=== PATIENT | female | born 1980 | race Caucasian/White ===

== ENCOUNTER 2019-07-07 08:55 | Emergency (ER) | payer MEDICAID ==
[~2019-07-07] VITALS: Ht 157.5 cm; Wt 111.1 kg
--- NOTE | 2019-07-07 08:56 | NUR ---
Arrived via [facility] ambulance with compliant of RLQ and right flank pain. Patient is moaning and writhing, however refused prehospital medication. Placed in room 2. Placed on monitor car operator, blood pressure machine and pulse oximeter. To gown for exam. Side rails up. Report given to Dhruv MALIK.
--- NOTE | 2019-07-07 08:57 | NUR ---
Patient brought in by EMS, with 20g IV to left hand. Patient is awake, alert, and oriented x4. Patient is complaining of burning LRQ abdominal pain 10/10 with nausea since this morning. Patient was able to ambulate to the restroom to provide urine sample.
--- NOTE | 2019-07-07 08:58 | NUR ---
ER Dr. Fine at bedside examining patient.
[2019-07-07] MEDS ORDERED: NACL 0.9% 1,000 ML IV ONE (09:03)
[2019-07-07] MEDS ORDERED: MORPHINE 4 MG/ML INJ. SYRINGE IVP ONE (09:15)
[2019-07-07] MEDS ORDERED: ONDANSETRON HCL 4 MG/2 ML VIAL IVP ONE (09:15)
[2019-07-07] MEDS ORDERED: KETOROLAC TROMETHAMINE 30 MG VIAL IVP ONE ×2 (09:15→11:15)
[2019-07-07 09:36] LABS: CALCIUM 9.2 mg/dL (8.4-11.0); CREATININE 0.95 mg/dL (0.55-1.30); POTASSIUM 3.2 mmol/L (3.5-5.1)
[2019-07-07 09:39] LABS: BASOPHILS # (AUTO) 0.1 K/uL (0.0-0.2); BASOPHILS % (AUTO) 0.8 % (0.0-2.0); EOSINOPHILS # (AUTO) 0.2 K/uL (0.0-0.4); EOSINOPHILS % (AUTO) 2.4 % (0.0-4.0); HEMATOCRIT 42.6 % (36-48); HEMOGLOBIN 14.4 g/dL (12.0-16.0); LYMPHOCYTES # (AUTO) 1.2 K/uL (1.0-5.5); LYMPHOCYTES % (AUTO) 13.2 % (20.5-51.5); MEAN CORPUSCULAR HEMOGLOBIN 29 pg (27-31); MEAN CORPUSCULAR HGB CONC 34 % (32-36); MEAN CORPUSCULAR VOLUME 85 fL (79.0-98.0); MONOCYTES # (AUTO) 0.5 K/uL (0.0-1.0); MONOCYTES % (AUTO) 5.2 % (1.7-9.3); NEUTROPHILS # (AUTO) 7.4 K/uL (1.8-7.7); NEUTROPHILS % (AUTO) 78.4 % (40.0-70.0); PLATELET COUNT (AUTO) 311 K/uL (130-430); RED BLOOD CELL COUNT(AUTO) 5.04 MIL/uL (4.2-6.2); RED CELL DISTRIBUTION WIDTH 14.1 % (9.0-15.0); WHITE BLOOD COUNT (AUTO) 9.4 K/uL (4.8-10.8)
--- NOTE | 2019-07-07 09:39 | NUR ---
Patient transported to radiology via gurney, accompanied by computer engineering technician.
[2019-07-07 09:42] LABS: BILIRUBIN,URINE NEGATIVE (NEGATIVE); BLOOD, URINE 3+ (NEGATIVE); CLARITY/URINE CLOUDY (CLEAR); COLOR,URINE RED (YELLOW); GLUCOSE,URINE NEGATIVE (NEGATIVE); KETONES,URINE NEGATIVE (NEGATIVE); LEUKOCYTE ESTERASE ,URINE NEGATIVE (NEGATIVE); NITRITE, URINE NEGATIVE (NEGATIVE); PH,URINE 8.5 (5.0-8.0); PROTEIN URINE 1+ (NEGATIVE); UROBILINOGEN,URINE 0.2 (0.2-1.0)
[2019-07-07 09:42] LABS: ALBUMIN 3.6 g/dL (3.4-4.8); TOTAL BILIRUBIN 0.4 mg/dL (0.0-1.0)
--- NOTE | 2019-07-07 09:49 | NUR ---
Returned from radiology, back to [facility].
[2019-07-07 09:51] LABS: BACTERIA,URINE FEW /HPF (None Seen); RBC,URINE >100 /HPF (0-3)
--- NOTE | 2019-07-07 10:03 | NUR ---
Dr. Fine made aware of patient blood pressure.
--- NOTE | 2019-07-07 11:27 | NUR ---
Patient's father called at [phone], states he will be on the way to pick her up.
[2019-07-07] MEDS ORDERED: KETOROLAC TROMETHAMINE 30 MG VIAL IM ONE (11:30)
[2019-07-07] MEDS ORDERED: HYDROcodone/ACETAMIN 5-325 MG TAB (NORCO/ VICODIN) PO ONE (11:30)
[2019-07-07 11:47] VITALS: BP_SYST 148
--- NOTE | 2019-07-07 11:47 | NUR ---
Patient given written and verbal discharge instructions and verbalizes understanding. ER MD discussed with patient the results and treatment provided. Patient in stable condition. ID arm band removed. IV catheter removed intact and dressing applied, no active bleeding. Rx of norco 5-325, keflex 500mg, flowmax 0.4mg, naprosyn 500mg,zofran ODT 4mg given. Patient educated on pain management and to follow up with PMD. Pain Scale 0/10. Opportunity for questions provided and answered. Medication side effect fact sheet provided.
== END 2019-07-07 11:47 | disposition home or self-care (01) ==
LOC: SED 08:55
DX: N20.1 Calculus of ureter (principal)
CPT/HCPCS: 36415; 74176; 80053; 81000; 81025; 83690; 85025; 96372; 96374; 96375; 99284; J1885; J2270; J2405

== ENCOUNTER 2020-09-05 07:17 | Emergency (ER) | payer MEDICAID ==
[~2020-09-05] VITALS: Ht 162.6 cm; Wt 90.7 kg
[2020-09-05 07:17] VITALS: BP_SYST 172
--- NOTE | 2020-09-05 07:17 | NUR ---
BROUGHT BACK TO BED #5 AND TRIAGED. REPORT GIVEN TO SHAUN
--- NOTE | 2020-09-05 07:25 | NUR ---
Patient AAOx4 ambulatory to bed 5, c/o lower back pain aching 07/24. Patient states she could not sleep due to the pain. Patient denies any SOB at this time. No signs or symptoms of acute distress noted. Patient has PMH of HTN and NE.
--- NOTE | 2020-09-05 07:32 | NUR ---
ER Dr. Brito at bedside examining patient.
[2020-09-05] MEDS ORDERED: MORPHINE 4 MG/ML INJ. SYRINGE IM ONE (07:45)
--- NOTE | 2020-09-05 09:37 | NUR ---
Patient awake and resting in bed, assisted to ambulate to restroom. Patient denies any pain or SOB at this time. No signs or symptoms of acute distress noted.
[2020-09-05 09:54] VITALS: BP_SYST 165
--- NOTE | 2020-09-05 09:54 | NUR ---
Patient given written and verbal discharge instructions and verbalizes understanding. ER MD discussed with patient the results and treatment provided. Patient in stable condition. ID arm band removed. Rx of [place] given. Patient educated on pain management and to follow up with PMD. Pain Scale 0/10. Opportunity for questions provided and answered. Medication side effect fact sheet provided.
== END 2020-09-05 09:54 | disposition home or self-care (01) ==
LOC: SED 07:17
DX: M54.5 Low back pain (principal)
CPT/HCPCS: 81002; 81025; 96372; 99283

== ENCOUNTER 2020-09-12 19:33 | Emergency (ER) | payer MEDICAID ==
[~2020-09-12] VITALS: Ht 162.6 cm; Wt 90.7 kg
[2020-09-12 19:40] VITALS: BP_SYST 177
--- NOTE | 2020-09-12 19:42 | NUR ---
Patient to ER bed 2 to gown for evaluation. Side rails up. Report given to Junie MALIK.
--- NOTE | 2020-09-12 19:53 | NUR ---
Patient complains of possibly swallowing something that causes sharp pain to epigastric region intermittently. Per pt, she was drinking water and felt like she swallowed something that scratched her throat. Denies SOB. Pt speaking in full sentences. No other injuries/complaints per pt or noted.
--- NOTE | 2020-09-12 20:00 | NUR ---
ER Dr. Gómez at bedside examining patient.
[2020-09-12] MEDS ORDERED: GLUCAGON,HUMAN RECOMBINANT 1 MG VIAL IVP ONE (20:15)
[2020-09-12] MEDS ORDERED: ONDANSETRON HCL 4 MG/2 ML VIAL IVP ONE (20:15)
--- NOTE | 2020-09-12 21:56 | NUR ---
Patient resting comfortably in bed. No acute distress, will continue to monitor. Pt reports that pain is not as bad as when she first came in. ER MD made aware.
--- NOTE | 2020-09-12 22:26 | NUR ---
Repeat EKG completed and given to Dr. Gómez for interpretation.
[2020-09-12] MEDS ORDERED: MAGNESIUM SULFATE 50 ML IV ONE (22:30)
[2020-09-12 23:05] VITALS: BP_SYST 149
--- NOTE | 2020-09-12 23:05 | NUR ---
Patient given written and verbal discharge instructions and verbalizes understanding. ER MD discussed with patient the results and treatment provided. Patient in stable condition. ID arm band removed. IV catheter removed intact and dressing applied, no active bleeding. No Rx given. Patient educated on pain management and to follow up with PMD. Pain Scale 0. Opportunity for questions provided and answered. Medication side effect fact sheet provided.
== END 2020-09-12 23:05 | disposition home or self-care (01) ==
LOC: SED 19:33
DX: T18.198A Other foreign object in esophagus causing other injury, initial encounter (principal); X58.XXXA Exposure to other specified factors, initial encounter; Y93.89 Activity, other specified; Y92.89 Other specified places as the place of occurrence of the external cause; Y99.8 Other external cause status
CPT/HCPCS: 71045; 74018; 81025; 93005; 96365; 96375; 99284; J1610; J2405; J3475

== ENCOUNTER 2020-10-23 14:46 | Emergency (ER) | payer MEDICAID ==
[~2020-10-23] VITALS: Ht 162.6 cm; Wt 90.7 kg
--- NOTE | 2020-10-23 15:00 | NUR ---
Pt traiged and placed in tent.
[2020-10-23 15:10] VITALS: BP_SYST 147
--- NOTE | 2020-10-23 15:15 | NUR ---
Pt walked in to ER with c/o redness and swelling to left eye since this morning. V/S stable, pt is febrile. No distress.
--- NOTE | 2020-10-23 15:50 | NUR ---
ER Dr. Barakat at bedside examining patient.
[2020-10-23 16:33] VITALS: BP_SYST 147
--- NOTE | 2020-10-23 16:35 | NUR ---
Patient given written and verbal discharge instructions and verbalizes understanding. ER MD discussed with patient the results and treatment provided. Patient in stable condition. ID arm band removed. Rx of Bactrim and Sulfacetamide Eye Drops given. Patient educated on pain management and to follow up with PMD. Pain Scale 0. Opportunity for questions provided and answered. Medication side effect fact sheet provided.
== END 2020-10-23 16:33 | disposition home or self-care (01) ==
LOC: SED 14:46
DX: H00.015 Hordeolum externum left lower eyelid (principal); I10 Essential (primary) hypertension; F17.200 Nicotine dependence, unspecified, uncomplicated
CPT/HCPCS: 99283

== ENCOUNTER 2021-01-12 10:10 | Observation (INO) | payer MEDICAID ==
[~2021-01-12] VITALS: Ht 162.6 cm; Wt 110.7 kg
[2021-01-12 10:10] VITALS: BP_SYST 164
[2021-01-12] MEDS ORDERED: LISINOPRIL 10 MG TABLET (PRINIVIL) PO ONE (10:45)
[2021-01-12] MEDS ORDERED: FUROSEMIDE 20 MG/2 ML VIAL IVP ONE (10:45)
[2021-01-12] MEDS ORDERED: DILTIAZEM HCL 180 MG CAP.SR.24H PO ONE (10:45)
[2021-01-12] MEDS ORDERED: ASPIRIN 81 MG TAB.CHEW PO ONE (10:45)
[2021-01-12 10:56] LABS: BASOPHILS # (AUTO) 0.1 K/uL (0.0-0.2); BASOPHILS % (AUTO) 1.2 % (0.0-2.0); EOSINOPHILS # (AUTO) 0.6 K/uL (0.0-0.4); EOSINOPHILS % (AUTO) 5.8 % (0.0-4.0); HEMOGLOBIN 12.7 g/dL (12.0-16.0); LYMPHOCYTES # (AUTO) 1.6 K/uL (1.0-5.5); LYMPHOCYTES % (AUTO) 16.2 % (20.5-51.5); MEAN CORPUSCULAR HEMOGLOBIN 27 pg (27-31); MEAN CORPUSCULAR HGB CONC 33 % (32-36); MEAN CORPUSCULAR VOLUME 83 fL (79.0-98.0); MONOCYTES # (AUTO) 0.4 K/uL (0.0-1.0); MONOCYTES % (AUTO) 4.1 % (1.7-9.3); NEUTROPHILS # (AUTO) 7.1 K/uL (1.8-7.7); NEUTROPHILS % (AUTO) 72.7 % (40.0-70.0); PLATELET COUNT (AUTO) 285 K/uL (130-430); RED BLOOD CELL COUNT(AUTO) 4.67 MIL/uL (4.2-6.2); RED CELL DISTRIBUTION WIDTH 15.4 % (9.0-15.0); WHITE BLOOD COUNT (AUTO) 9.7 K/uL (4.8-10.8)
[2021-01-12 11:11] LABS: PROTHROMBIN TIME 10.1 SECS (9.5-12.5)
[2021-01-12 11:15] LABS: CALCIUM 8.3 mg/dL (8.4-11.0); CREATININE 0.79 mg/dL (0.55-1.30); POTASSIUM 3.9 mmol/L (3.5-5.1)
[2021-01-12 11:28] LABS: ALBUMIN 3.1 g/dL (3.4-4.8); TOTAL BILIRUBIN 0.3 mg/dL (0.0-1.0)
[2021-01-12] MEDS ORDERED: cefTRIAXone 1 GM IVPB PREMIX 50 ML IV ONE (12:15)
[2021-01-12] MEDS ORDERED: LISI10TA29 PO (13:45)
[2021-01-12] MEDS ORDERED: COR6.25 PO (13:45)
[2021-01-12 15:10] VITALS: BP_SYST 138
[2021-01-12 16:00] VITALS: BP_SYST 138
[2021-01-12] MEDS ORDERED: LORazepam 2 MG/ML VIAL IVP PRN (19:30)
[2021-01-12] MEDS ORDERED: NALOXONE HCL 0.4 MG/ML AMP (NARCAN) IVP PRN ×2 (19:30)
[2021-01-12] MEDS ORDERED: ONDANSETRON HCL 4 MG/2 ML VIAL IVP PRN (19:30)
[2021-01-12] MEDS ORDERED: HYDROcodone/ACETAMIN 10-325 MG TAB PO PRN (19:30)
[2021-01-12] MEDS ORDERED: ACETAMINOPHEN 325 MG TABLET PO PRN ×2 (19:30→19:45)
[2021-01-12] MEDS ORDERED: HYDROcodone/ACETAMIN 5-325 MG TAB (NORCO/ VICODIN) PO PRN (19:30)
[2021-01-12 20:00] VITALS: BP_SYST 137
[2021-01-12] MEDS: CARVEDILOL 6.25 MG TABLET (COREG) PO SCH (20:37)
[2021-01-12] MEDS: NORMAL SALINE 5 ML DISP.SYRIN IVF SCH (21:32)
[2021-01-13 00:50] VITALS: BP_SYST 122
[2021-01-13] MEDS: NORMAL SALINE 5 ML DISP.SYRIN IVF SCH ×2 (06:09→14:04)
[2021-01-13 06:44] LABS: BASOPHILS # (AUTO) 0.1 K/uL (0.0-0.2); BASOPHILS % (AUTO) 0.8 % (0.0-2.0); EOSINOPHILS # (AUTO) 0.7 K/uL (0.0-0.4); EOSINOPHILS % (AUTO) 7.1 % (0.0-4.0); HEMATOCRIT 38.9 % (36-48); HEMOGLOBIN 12.8 g/dL (12.0-16.0); LYMPHOCYTES # (AUTO) 1.8 K/uL (1.0-5.5); LYMPHOCYTES % (AUTO) 18.3 % (20.5-51.5); MEAN CORPUSCULAR HEMOGLOBIN 28 pg (27-31); MEAN CORPUSCULAR HGB CONC 33 % (32-36); MEAN CORPUSCULAR VOLUME 84 fL (79.0-98.0); MONOCYTES # (AUTO) 0.4 K/uL (0.0-1.0); NEUTROPHILS # (AUTO) 6.9 K/uL (1.8-7.7); NEUTROPHILS % (AUTO) 69.8 % (40.0-70.0); PLATELET COUNT (AUTO) 302 K/uL (130-430); RED BLOOD CELL COUNT(AUTO) 4.64 MIL/uL (4.2-6.2); RED CELL DISTRIBUTION WIDTH 15.5 % (9.0-15.0); WHITE BLOOD COUNT (AUTO) 9.9 K/uL (4.8-10.8)
[2021-01-13 07:21] LABS: ANION GAP 10 (5-15); CALCIUM 8.7 mg/dL (8.4-11.0); CHLORIDE 106 mmol/L (98-107); CREATININE 0.74 mg/dL (0.55-1.30); GLUCOSE 93 mg/dL (70-99); PHOSPHORUS 3.8 mg/dL (2.7-4.5); POTASSIUM 4.1 mmol/L (3.5-5.1); SODIUM SERUM 141 mmol/L (136-145); UREA NITROGEN, BLOOD 13 mg/dL (8-21)
[2021-01-13 07:43] LABS: GFR AFRICAN AMERICAN 112 mL/min (>90)
[2021-01-13 08:00] VITALS: BP_SYST 148
[2021-01-13] MEDS: CARVEDILOL 6.25 MG TABLET (COREG) PO SCH (08:56)
[2021-01-13] MEDS ORDERED: LISINOPRIL 10 MG TABLET (PRINIVIL) PO SCH (09:00)
[2021-01-13 11:29] VITALS: BP_SYST 117
[2021-01-13 15:25] VITALS: BP_SYST 120
[2021-01-13] MEDS ORDERED: LISI10TA29 PO ×2 (17:40→17:42)
[2021-01-13] MEDS ORDERED: COR6.25 PO (17:40)
[2021-01-13 17:51] VITALS: BP_SYST 138
== END 2021-01-13 18:10 | disposition home or self-care (01) ==
LOC: SED 10:10 → STU 13:45 → INTOOBSV 13:45 → STU 13:51
PROVIDERS: ADMIT Preventive Medicine Preventive Medicine/Occupational Environmental Medicine; ATTEND Preventive Medicine Preventive Medicine/Occupational Environmental Medicine
DX: I16.0 Hypertensive urgency (principal); Z20.822 Contact with and (suspected) exposure to COVID-19; J96.00 Acute respiratory failure, unspecified whether with hypoxia or hypercapnia; I11.0 Hypertensive heart disease with heart failure; I50.9 Heart failure, unspecified; I25.10 Atherosclerotic heart disease of native coronary artery without angina pectoris; J18.9 Pneumonia, unspecified organism; R00.0 Tachycardia, unspecified; R73.9 Hyperglycemia, unspecified; E83.51 Hypocalcemia; E88.09 Other disorders of plasma-protein metabolism, not elsewhere classified; I21.A9 Other myocardial infarction type; K80.20 Calculus of gallbladder without cholecystitis without obstruction; I25.2 Old myocardial infarction; E87.70 Fluid overload, unspecified; E66.9 Obesity, unspecified; E83.52 Hypercalcemia; Z79.899 Other long term (current) drug therapy
CPT/HCPCS: 36415 ×2; 71045; 80048; 80053; 83605; 83735; 83880; 84100; 84484 ×2; 85025 ×2; 85610; 85730; 87040; 87426; 93005; 93306; 96365; 96375; 99285; G0378; J0696; J1940

== ENCOUNTER 2021-07-05 07:52 | Emergency (ER) | payer MEDICAID, SELFPAY ==
[~2021-07-05] VITALS: Ht 162.6 cm; Wt 91.6 kg
[~2021-07-05 07:52] MED LIST: COR6.25 PO; LISI10TA29 PO
[2021-07-05 08:11] VITALS: BP_SYST 148
--- NOTE | 2021-07-05 08:14 | NUR ---
Patient to ER bed 6 to gown for evaluation. Side rails up. Report given to Maida MALIK.
--- NOTE | 2021-07-05 08:15 | NUR ---
Pt. brought self in with c/o N/V/D since about 1pm yesterday, has mild abd. pain 11/24, stated she was scheduled to work today and is unable, requesting note for work
--- NOTE | 2021-07-05 08:15 | NUR ---
ER at bedside examining patient.
[2021-07-05] MEDS ORDERED: ONDANSETRON 4 MG ODT TAB PO ONE (08:30)
[2021-07-05] MEDS ORDERED: DIPHENOXYLATE HCL/ATROP SULF 2.5 MG TAB PO ONE (08:30)
[2021-07-05] MEDS ORDERED: KETOROLAC TROMETHAMINE 60 MG/2 ML VIAL IM ONE (08:30)
[2021-07-05] MEDS ORDERED: DIPHENOXYLATE HCL/ATROP SULF 2.5 MG TAB ONE (08:35)
[2021-07-05] MEDS ORDERED: ONDA-8 TL (09:03)
[2021-07-05] MEDS ORDERED: LOM2.5 PO (09:03)
[2021-07-05 09:17] VITALS: BP_SYST 139
--- NOTE | 2021-07-05 09:17 | NUR ---
Patient given written and verbal discharge instructions and verbalizes understanding. ER Dr. Benedict discussed with patient the results and treatment provided. Patient in stable condition. ID arm band removed. Rx of Zofran and Lomotil given. Patient educated on pain management and to follow up with PMD. Pain Scale 0. Opportunity for questions provided and answered. Medication side effect fact sheet provided.
== END 2021-07-05 09:17 | disposition home or self-care (01) ==
LOC: SED 07:52
DX: K52.9 Noninfective gastroenteritis and colitis, unspecified (principal); I10 Essential (primary) hypertension; I11.0 Hypertensive heart disease with heart failure; I50.9 Heart failure, unspecified; I25.10 Atherosclerotic heart disease of native coronary artery without angina pectoris; Z79.899 Other long term (current) drug therapy; Z20.822 Contact with and (suspected) exposure to COVID-19
CPT/HCPCS: 81002; 81025; 96372; 99283; C9803; J1885; Q0162; U0003

== ENCOUNTER 2022-03-09 11:05 | Inpatient (IN) | payer MEDICAID ==
[~2022-03-09] VITALS: Ht 162.6 cm; Wt 97.5 kg
[~2022-03-09 11:05] MED LIST changes: +LOM2.5 PO; +ONDA-8 TL
--- NOTE | 2022-03-09 11:09 | NUR ---
Patient to ER bed 3 for evaluation. Side rails up. Report given to Kris MALIK.
[2022-03-09 11:14] VITALS: BP_SYST 160
[2022-03-09] MEDS ORDERED: ASPIRIN 81 MG TAB.CHEW PO ONE (11:30)
--- NOTE | 2022-03-09 11:43 | NUR ---
Pt present to ED with complaint of dyspnea and BLE pain on ambulation. Pt reports that she is an everyday smoker. AOx4 GCS [address] ekg done. pt in gown. Will continue to monitor pt.
--- NOTE | 2022-03-09 11:48 | NUR ---
Pt seen by ED physician at bedside
[2022-03-09 11:53] LABS: ANION GAP 10 (5-15); BASOPHILS # (AUTO) 0.1 K/uL (0.0-0.2); CALCIUM 8.1 mg/dL (8.4-11.0); CHLORIDE 103 mmol/L (98-107); CREATININE 0.77 mg/dL (0.55-1.30); EOSINOPHILS # (AUTO) 0.3 K/uL (0.0-0.4); EOSINOPHILS % (AUTO) 4.1 % (0.0-4.0); GLUCOSE 97 mg/dL (70-99); HEMATOCRIT 38.2 % (36-48); HEMOGLOBIN 12.5 g/dL (12.0-16.0); LYMPHOCYTES # (AUTO) 1.3 K/uL (1.0-5.5); LYMPHOCYTES % (AUTO) 17.6 % (20.5-51.5); MEAN CORPUSCULAR HEMOGLOBIN 26 pg (27-31); MEAN CORPUSCULAR HGB CONC 33 % (32-36); MEAN CORPUSCULAR VOLUME 79 fL (79.0-98.0); MONOCYTES # (AUTO) 0.3 K/uL (0.0-1.0); MONOCYTES % (AUTO) 3.9 % (1.7-9.3); NEUTROPHILS # (AUTO) 5.4 K/uL (1.8-7.7); NEUTROPHILS % (AUTO) 73.4 % (40.0-70.0); PLATELET COUNT (AUTO) 247 K/uL (130-430); RED BLOOD CELL COUNT(AUTO) 4.81 MIL/uL (4.2-6.2); RED CELL DISTRIBUTION WIDTH 16.5 % (9.0-15.0); SODIUM SERUM 138 mmol/L (136-145); UREA NITROGEN, BLOOD 16 mg/dL (8-21); WHITE BLOOD COUNT (AUTO) 7.3 K/uL (4.8-10.8)
[2022-03-09 11:55] LABS: GFR AFRICAN AMERICAN 107 mL/min (>90)
[2022-03-09 12:08] LABS: ALANINE AMINOTRANSFERASE 18 U/L (12-78); ASPARTATE AMINOTRANSFERASE 23 U/L (10-37); TOTAL BILIRUBIN 0.6 mg/dL (0.0-1.0)
[2022-03-09] MEDS ORDERED: ALBUTEROL SULFATE 0.083% 2.5 MG/3 ML VIAL.NEB INH ONE (12:45)
[2022-03-09] MEDS ORDERED: FUROSEMIDE 40 MG/4 ML VIAL IVP ONE (13:00)
--- NOTE | 2022-03-09 13:11 | NUR ---
pt off the unit for CT
[2022-03-09 13:15] LABS: INR 1.1 (0.8-1.2); PROTHROMBIN TIME 10.7 SECS (9.5-12.5)
[2022-03-09 13:43] LABS: BILIRUBIN,URINE NEGATIVE (NEGATIVE); BLOOD, URINE 3+ (NEGATIVE); GLUCOSE,URINE NEGATIVE (NEGATIVE); KETONES,URINE NEGATIVE (NEGATIVE); LEUKOCYTE ESTERASE ,URINE NEGATIVE (NEGATIVE); NITRITE, URINE NEGATIVE (NEGATIVE); PROTEIN URINE 1+ (NEGATIVE); UROBILINOGEN,URINE 0.2 (0.2-1.0)
[2022-03-09 13:51] LABS: CLARITY/URINE CLEAR (CLEAR); COLOR,URINE BROWN (YELLOW)
[2022-03-09] MEDS ORDERED: NITROGLYCERIN 1 INCH (GM) OINT. TP ONE (14:15)
[2022-03-09] MEDS ORDERED: hydrALAZINE HCL 20 MG/ML VIAL IVP ONE (14:15)
--- NOTE | 2022-03-09 15:04 | NUR ---
Admit bed requested Patient will be admitted to care of Dr. Hernandez Admitted to unit. Tele Diagnosis CHF Inpatient (Yes or No) yes Observation (Yes or No) no Orientation concerns or request close to nursing station (Yes or No) no Covid Status negative On vent or bipap no Isolation requirements no Needs a sitter no From Home (Yes or if No enter name of facility) yes Requires Dialysis (Yes or No) no Med Rec Completed (Yes of No) no
--- NOTE | 2022-03-09 15:08 | NUR ---
Pt not sure what meds she takes at home, unable to med rec. Will continue to monitor pt
[2022-03-09 15:18] LABS: RBC,URINE 80-100 /HPF (0-3); WBC,URINE 0-3 /HPF (0-3)
[2022-03-09 15:19] LABS: BACTERIA,URINE None Seen /HPF (None Seen); MUCUS,URINE 1+ /LPF (None Seen)
[2022-03-09 16:10] VITALS: BP_SYST 147
--- NOTE | 2022-03-09 16:10 | NUR ---
ADMISSION NOTED PATIENT ADMITTED TO TELE UNIT VIA GURNEY AND WAS ABLE TO AMBULATE FROM GURNEY TO BED. PATIENT IS ALERT AND ORIENTED X 4. NO COMPLAINTS OF CHEST PAIN AT THIS TIME. PATIENT CLAIMS SOB WHEN AMBULATING. PATIENT HAS A STEADY GAIT. VITAL OBTAINED SPO2 @ 97% ON RA. PATIENT IS ON MONITOR. PATIENT HAS BEEN ORIENTED TO ROOM, AND USE OF CALL LIGHT. PATIENT IS AWARE TO CALL FOR ASSISTANCE. SAFETY PRECAUTIONS IN PLACE AND CALL LIGHT WITHIN REACH.
--- NOTE | 2022-03-09 16:36 | NUR ---
CONSULTATION PAGED REASON FOR CONSULTATION:CHF WAS CONSULT CALLED?Y PERSON WHO WAS NOTIFIED:MARGIE CONSULTING PHYSICIAN:YUNIEL SERRATO PHYSICAL EDUCATION DEPARTMENT CHAIR SPECIALTY:-CARDIO PHYSICAL EDUCATION DEPARTMENT CHAIR PHONE NUMBER:[phone] REQUESTING PHYSICIAN:HANK SERRATO
--- NOTE | 2022-03-09 18:50 | NUR ---
CLOSING NOTES PATIENT IS A0X4. EATING DINNER. NO COMPLAINTS OF PAIN. PATIENT ON RA. NO RESPIRATORY DISTRESS NOTED. SAFETY PRECAUTIONS IN PLACE. CALL LIGHT WITHIN REACH.
--- NOTE | 2022-03-09 19:20 | NUR ---
OPENING NOTE PT IS SITTING UP IN BED SPEAKING WITH NEIGHBOR. NO APPARENT SIGNS OF DISTRESS NOTED AT THIS TIME. BED IS IN LOWEST POSITION WITH SAFETY PRECAUTIONS IN PLACE. CALL LIGHT IS WITHIN REACH
[2022-03-09] MEDS ORDERED: ONDANSETRON HCL 4 MG/2 ML VIAL IVP PRN (19:45)
[2022-03-09] MEDS ORDERED: ONDANSETRON 4 MG ODT TAB TL PRN (19:45)
[2022-03-09] MEDS ORDERED: DIPHENOXYLATE HCL/ATROP SULF 2.5 MG TAB PO PRN (19:45)
[2022-03-09] MEDS ORDERED: ACETAMINOPHEN 325 MG TABLET PO PRN (19:45)
[2022-03-09] MEDS ORDERED: HYDROcodone/ACETAMIN 5-325 MG TAB (NORCO/ VICODIN) PO PRN (19:45)
[2022-03-09] MEDS ORDERED: HYDROcodone/ACETAMIN 10-325 MG TAB PO PRN (19:45)
[2022-03-09] MEDS ORDERED: LORazepam 2 MG/ML VIAL IVP PRN (19:45)
[2022-03-09] MEDS ORDERED: NALOXONE HCL 0.4 MG/ML AMP (NARCAN) IVP PRN ×2 (19:45)
[2022-03-09 20:00] VITALS: BP_SYST 149
[2022-03-09] MEDS: FUROSEMIDE 20 MG/2 ML VIAL IVP SCH (21:00)
[2022-03-09] MEDS: CARVEDILOL 6.25 MG TABLET (COREG) PO SCH (21:51)
[2022-03-09] MEDS: LISINOPRIL 10 MG TABLET (PRINIVIL) PO SCH (21:51)
[2022-03-09] MEDS ORDERED: NORMAL SALINE 5 ML DISP.SYRIN IVF SCH (22:00)
[2022-03-09] MEDS: NORMAL SALINE 5 ML DISP.SYRIN IVF SCH (22:00)
[2022-03-10 00:20] VITALS: BP_SYST 135
[2022-03-10 06:07] LABS: BASOPHILS # (AUTO) 0.1 K/uL (0.0-0.2); BASOPHILS % (AUTO) 0.8 % (0.0-2.0); EOSINOPHILS # (AUTO) 0.2 K/uL (0.0-0.4); EOSINOPHILS % (AUTO) 2.4 % (0.0-4.0); HEMATOCRIT 38.1 % (36-48); HEMOGLOBIN 12.4 g/dL (12.0-16.0); LYMPHOCYTES # (AUTO) 0.7 K/uL (1.0-5.5); LYMPHOCYTES % (AUTO) 7.7 % (20.5-51.5); MEAN CORPUSCULAR HEMOGLOBIN 26 pg (27-31); MEAN CORPUSCULAR HGB CONC 32 % (32-36); MEAN CORPUSCULAR VOLUME 79 fL (79.0-98.0); MONOCYTES # (AUTO) 0.2 K/uL (0.0-1.0); MONOCYTES % (AUTO) 2.6 % (1.7-9.3); NEUTROPHILS # (AUTO) 7.5 K/uL (1.8-7.7); NEUTROPHILS % (AUTO) 86.5 % (40.0-70.0); PLATELET COUNT (AUTO) 273 K/uL (130-430); RED BLOOD CELL COUNT(AUTO) 4.81 MIL/uL (4.2-6.2); RED CELL DISTRIBUTION WIDTH 16.4 % (9.0-15.0); WHITE BLOOD COUNT (AUTO) 8.7 K/uL (4.8-10.8)
[2022-03-10] MEDS: NORMAL SALINE 5 ML DISP.SYRIN IVF SCH ×3 (06:28→20:58)
[2022-03-10 06:47] LABS: CALCIUM 8.2 mg/dL (8.4-11.0); CREATININE 0.83 mg/dL (0.55-1.30); PHOSPHORUS 4.1 mg/dL (2.7-4.5); POTASSIUM 3.7 mmol/L (3.5-5.1); TOTAL BILIRUBIN 0.6 mg/dL (0.0-1.0)
[2022-03-10 07:30] VITALS: BP_SYST 135
--- NOTE | 2022-03-10 08:00 | NUR ---
Assessed patient at bedside alert, awake and oriented with stable vital signs. She denies any pain or discomfort at this time.
[2022-03-10] MEDS: CARVEDILOL 6.25 MG TABLET (COREG) PO SCH ×2 (08:32→22:01)
[2022-03-10] MEDS: FUROSEMIDE 20 MG/2 ML VIAL IVP SCH ×2 (08:33→20:58)
--- NOTE | 2022-03-10 09:03 | NUR ---
CONSULTATION PAGED/CALLED Reason for Consultation: []CHF Person Who was Notified: []KOLTON Consulting Physician: [] ROBERT Records Management Technician Specialty: []CARDIO Ordering Physician: []Titus JERRY
[2022-03-10] MEDS ORDERED: NICOTINE 14 MG/24 HR PATCH.TD24 TD ONE (12:00)
[2022-03-10 12:05] VITALS: BP_SYST 124
[2022-03-10 16:00] VITALS: BP_SYST 133
[2022-03-10 19:40] VITALS: BP_SYST 127
--- NOTE | 2022-03-10 19:40 | NUR ---
PM ASSESSMENT; -pt is a/ox4, laying in bed comfortably. Pt denies any chest pain,pain,sob,or any acute distress. IV site patent after flushed w/ NS, no s/s any infiltration noted. VSS. Discussed poc,all safety measures, pain mgmt, or any acute distress to use call light to inform nurse, pt verbalized understanding. Call light w/in reach, side rails x2. Cont to monitor pt.
[2022-03-10] MEDS: LISINOPRIL 10 MG TABLET (PRINIVIL) PO SCH (20:57)
[2022-03-10] MEDS ORDERED: ATORVASTATIN 20 MG TABLET PO SCH (21:00)
--- NOTE | 2022-03-10 21:50 | NUR ---
ROUNDS; -Pt awakes,dangling vel feet on bed. UP=670/82,82, gave Coreg 6.25mg po. Pt denies any chest pain,sob,pain,or any acute distress. Call light w/in reach, side rails x2. Cont to monitor pt.
[2022-03-11 00:32] VITALS: BP_SYST 131
--- NOTE | 2022-03-11 00:33 | NUR ---
ROUNDS; -Pt awakes, laying in bed. Pt denies any chest pain,sob,pain,or any acute distress. VSS. Call light w/in reach, side rails x2. Cont to monitor pt.
--- NOTE | 2022-03-11 02:30 | NUR ---
ROUNDS; -Pt is asleep. No s/s any chest pain,sob,pain,or any acute distress noted. Call light w/in reach, side rails x2. Cont to monitor pt.
--- NOTE | 2022-03-11 04:25 | NUR ---
ROUNDS; -Pt is asleep. No s/s any chest pain,sob,pain,or any acute distress noted. Pt's condition stable. Call light w/in reach, side rails x2. Cont to monitor pt.
[2022-03-11] MEDS: NORMAL SALINE 5 ML DISP.SYRIN IVF SCH (06:17)
[2022-03-11 06:25] LABS: BASOPHILS # (AUTO) 0.1 K/uL (0.0-0.2); BASOPHILS % (AUTO) 0.9 % (0.0-2.0); EOSINOPHILS # (AUTO) 0.3 K/uL (0.0-0.4); EOSINOPHILS % (AUTO) 4.4 % (0.0-4.0); HEMOGLOBIN 12.1 g/dL (12.0-16.0); LYMPHOCYTES # (AUTO) 1.3 K/uL (1.0-5.5); LYMPHOCYTES % (AUTO) 20.3 % (20.5-51.5); MEAN CORPUSCULAR HEMOGLOBIN 26 pg (27-31); MEAN CORPUSCULAR HGB CONC 33 % (32-36); MEAN CORPUSCULAR VOLUME 79 fL (79.0-98.0); MONOCYTES # (AUTO) 0.3 K/uL (0.0-1.0); MONOCYTES % (AUTO) 5.2 % (1.7-9.3); NEUTROPHILS # (AUTO) 4.3 K/uL (1.8-7.7); NEUTROPHILS % (AUTO) 69.2 % (40.0-70.0); PLATELET COUNT (AUTO) 274 K/uL (130-430); RED CELL DISTRIBUTION WIDTH 16.3 % (9.0-15.0); WHITE BLOOD COUNT (AUTO) 6.2 K/uL (4.8-10.8)
--- NOTE | 2022-03-11 06:34 | NUR ---
CLOSING NOTES; -pt is resting in bed comfortably. No s/s any chest pain,pain,sob,or any acute distress noted. IV site patent after flushed w/ NS, no s/s any infiltration noted. Call light w/in reach, side rails x2. Will endorse to next nurse to cont care.
[2022-03-11 06:59] LABS: CALCIUM 8.3 mg/dL (8.4-11.0); CREATININE 0.89 mg/dL (0.55-1.30); POTASSIUM 3.4 mmol/L (3.5-5.1)
[2022-03-11] MEDS ORDERED: NICOTINE 14 MG/24 HR PATCH.TD24 TD SCH (09:00)
[2022-03-11] MEDS: FUROSEMIDE 20 MG/2 ML VIAL IVP SCH (09:15)
[2022-03-11] MEDS: CARVEDILOL 6.25 MG TABLET (COREG) PO SCH (09:17)
[2022-03-11] MEDS ORDERED: LIP20 PO (10:25)
[2022-03-11] MEDS ORDERED: FURO-150 PO (10:25)
[2022-03-11 12:46] VITALS: BP_SYST 119
[2022-03-11 13:38] VITALS: BP_SYST 126
== END 2022-03-11 13:25 | disposition home or self-care (01) | DRG 194 ==
LOC: SED 11:05 → STU 14:45
PROVIDERS: ADMIT Preventive Medicine Preventive Medicine/Occupational Environmental Medicine; ATTEND Preventive Medicine Preventive Medicine/Occupational Environmental Medicine
DX: I11.0 Hypertensive heart disease with heart failure (principal); E44.0 Moderate protein-calorie malnutrition; I42.9 Cardiomyopathy, unspecified; E83.51 Hypocalcemia; E88.09 Other disorders of plasma-protein metabolism, not elsewhere classified; I50.23 Acute on chronic systolic (congestive) heart failure; I25.10 Atherosclerotic heart disease of native coronary artery without angina pectoris; E83.52 Hypercalcemia; K80.20 Calculus of gallbladder without cholecystitis without obstruction; Z20.822 Contact with and (suspected) exposure to COVID-19; Z87.891 Personal history of nicotine dependence; Z90.49 Acquired absence of other specified parts of digestive tract; Z91.19 Patient's noncompliance with other medical treatment and regimen; I25.2 Old myocardial infarction
CPT/HCPCS: 36415; 71045; 71250-TC; 76376; 80048; 80053; 81000; 83735; 83880; 84100; 84484; 85025; 85379; 85610-TC; 93005; 93306; 94640; 96374; 96375; 99285; G0378; J0360; J1940; J2405; J7613

== ENCOUNTER 2022-09-21 00:14 | Emergency (ER) | payer MEDICAID ==
[~2022-09-21] VITALS: Ht 162.6 cm; Wt 127.0 kg
[~2022-09-21 00:14] MED LIST changes: +FURO-150 PO; +LIP20 PO
[2022-09-21 00:38] VITALS: BP_SYST 158
--- NOTE | 2022-09-21 00:41 | NUR ---
Triaged pt and placed in waiting room until a bed becomes available. Pt is A&Ox4. VSS. Ambulatory with steady gait. Dr. Horton notified.
--- NOTE | 2022-09-21 01:10 | NUR ---
Patient to ER bed 3 to gown for evaluation. Side rails up.
--- NOTE | 2022-09-21 01:16 | NUR ---
GIANCARLO Howard at bedside examining patient.
[2022-09-21] MEDS ORDERED: ALBUTEROL SULFATE 0.083% 2.5 MG/3 ML VIAL.NEB INH ONE (02:30)
[2022-09-21] MEDS ORDERED: LORATADINE 10 MG TABLET PO ONE (02:30)
--- NOTE | 2022-09-21 02:31 | NUR ---
COVID 19 SWAB TEST AND INFLUENZA SWAB TEST ADMINISTERED BY EMT LAURI AND TEST SAMPLES SENT TO LAB FOR ANALYSIS
--- NOTE | 2022-09-21 02:52 | NUR ---
URINE COLLECTED BY EMT LAURI AND SENT TO LAB FOR ANALYSIS
[2022-09-21 03:06] LABS: BASOPHILS # (AUTO) 0.1 K/uL (0.0-0.2); BASOPHILS % (AUTO) 0.9 % (0.0-2.0); EOSINOPHILS # (AUTO) 0.3 K/uL (0.0-0.4); EOSINOPHILS % (AUTO) 4.1 % (0.0-4.0); HEMATOCRIT 40.3 % (36-48); HEMOGLOBIN 13.1 g/dL (12.0-16.0); LYMPHOCYTES # (AUTO) 1.1 K/uL (1.0-5.5); LYMPHOCYTES % (AUTO) 13.7 % (20.5-51.5); MEAN CORPUSCULAR HEMOGLOBIN 26 pg (27-31); MEAN CORPUSCULAR HGB CONC 33 % (32-36); MEAN CORPUSCULAR VOLUME 81 fL (79.0-98.0); MONOCYTES # (AUTO) 0.5 K/uL (0.0-1.0); MONOCYTES % (AUTO) 5.8 % (1.7-9.3); NEUTROPHILS # (AUTO) 6.1 K/uL (1.8-7.7); NEUTROPHILS % (AUTO) 75.5 % (40.0-70.0); PLATELET COUNT (AUTO) 259 K/uL (130-430); RED BLOOD CELL COUNT(AUTO) 4.97 MIL/uL (4.2-6.2); RED CELL DISTRIBUTION WIDTH 17.3 % (9.0-15.0)
[2022-09-21 03:12] LABS: BILIRUBIN,URINE NEGATIVE (NEGATIVE); BLOOD, URINE 3+ (NEGATIVE); COLOR,URINE YELLOW (YELLOW); GLUCOSE,URINE NEGATIVE (NEGATIVE); KETONES,URINE NEGATIVE (NEGATIVE); LEUKOCYTE ESTERASE ,URINE 1+ (NEGATIVE); NITRITE, URINE NEGATIVE (NEGATIVE); PH,URINE 5.5 (5.0-8.0); PROTEIN URINE NEGATIVE (NEGATIVE); UROBILINOGEN,URINE 0.2 (0.2-1.0)
[2022-09-21 03:18] LABS: CLARITY/URINE HAZY (CLEAR)
[2022-09-21 03:22] LABS: CALCIUM 8.6 mg/dL (8.4-11.0); CREATININE 0.67 mg/dL (0.55-1.30)
[2022-09-21 03:25] LABS: BACTERIA,URINE FEW /HPF (None Seen); MUCUS,URINE 1+ /LPF (None Seen); RBC,URINE 80-100 /HPF (0-3); WBC,URINE 0-3 /HPF (0-3)
[2022-09-21 03:35] LABS: ALBUMIN 3.3 g/dL (3.4-4.8); TOTAL BILIRUBIN 0.6 mg/dL (0.0-1.0)
[2022-09-21 03:45] LABS: BARBITURATE, URINE NEGATIVE (NEG <=200); BENZODIAZEPINE, URINE NEGATIVE (NEG <=150); CANNABINOID, URINE NEGATIVE (NEG <=50); COCAINE, URINE NEGATIVE (NEG <=150); METHAMPHETAMINES SCREEN,URINE NEGATIVE (NEG <=500); OPIATE, URINE NEGATIVE (NEG <=100); PHENCYCLIDINE SCREEN,URINE NEGATIVE (NEG <=25); UR TRICYCLIC ANTIDEPRESSANTS NEGATIVE (NEG <=300); URINE AMPHETAMINE NEGATIVE (NEG <=500); URINE METHADONE NEGATIVE (NEG <=200); URINE OXYCODONE SCREEN NEGATIVE (NEG <=100); URINE PROPOXYPHENE SCREEN NEGATIVE (NEG <=300)
[2022-09-21] MEDS ORDERED: PRED20TA PO (04:51)
[2022-09-21] MEDS ORDERED: LORA10TA7 PO (04:51)
[2022-09-21] MEDS ORDERED: ALBMDI INH (04:51)
[2022-09-21] MEDS ORDERED: AZIT-93 PO (04:51)
[2022-09-21] MEDS ORDERED: methylPREDNISolone SOD SUCC/PF 62.5 MG/ML VIAL IVP ONE (05:00)
[2022-09-21] MEDS ORDERED: predniSONE 20 MG TABLET ONE (05:04)
[2022-09-21 05:06] VITALS: BP_SYST 137
--- NOTE | 2022-09-21 05:07 | NUR ---
Patient given written and verbal discharge instructions and verbalizes understanding. ER MD discussed with patient the results and treatment provided. Patient in stable condition. ID arm band removed. IV catheter removed intact and dressing applied, no active bleeding. Rx of ALBUTEROL,AZITHROMYCIN,LORATADINE,PREDNISONE given. Patient educated on pain management and to follow up with PMD. Pain Scale . Opportunity for questions provided and answered. Medication side effect fact sheet provided.
[2022-09-21] MEDS ORDERED: predniSONE 20 MG TABLET PO ONE (05:30)
== END 2022-09-21 05:05 | disposition home or self-care (01) ==
LOC: SED 00:14
DX: J44.1 Chronic obstructive pulmonary disease with (acute) exacerbation (principal); J20.9 Acute bronchitis, unspecified; I11.0 Hypertensive heart disease with heart failure; I50.9 Heart failure, unspecified; Z68.42 Body mass index [BMI] 45.0-49.9, adult; Z79.899 Other long term (current) drug therapy; Z20.822 Contact with and (suspected) exposure to COVID-19
CPT/HCPCS: 80307; 80053; 81000; 83880; 85025; 87040; 36415; 93005; 71045; 94640; 99285; 96374; 83605; 87804 ×2; 87426; J7512; J2930; J7613

== ENCOUNTER 2023-03-11 07:56 | Inpatient (IN) | payer MEDICAID ==
[~2023-03-11] VITALS: Ht 162.6 cm; Wt 116.1 kg
[2023-03-11] VITALS (10 sets, daily range): BP systolic 132–170; PULSE 97–110; RESP 20–22; TEMP 97.2–98.1; O2SAT 93–98
[~2023-03-11 07:56] MED LIST changes: +ALBMDI INH; +AZIT-93 PO; +LORA10TA7 PO; +PRED20TA PO
--- NOTE | 2023-03-11 08:14 | NUR ---
Patient to ER bed 4 to gown for evaluation. Side rails up. Report given to HELENA BRADY.
[2023-03-11] MEDS ORDERED: ENALAPRILAT DIHYDRATE 1.25 MG/ML VIAL IVP ONE (08:15)
[2023-03-11] MEDS ORDERED: MAGNESIUM SULFATE 50 ML IV ONE (08:30)
[2023-03-11] MEDS ORDERED: methylPREDNISolone SOD SUCC/PF 62.5 MG/ML VIAL IVP ONE ×2 (08:30)
[2023-03-11] MEDS ORDERED: IPRATROPIUM/ALBUTEROL SULFATE 3 ML AMPUL.NEB (DUONEB) INH ONE (08:30)
[2023-03-11 08:44] LABS: BASOPHILS # (AUTO) 0.1 K/uL (0.0-0.2); BASOPHILS % (AUTO) 0.6 % (0.0-2.0); EOSINOPHILS # (AUTO) 0.4 K/uL (0.0-0.4); HEMATOCRIT 40.7 % (36-48); HEMOGLOBIN 13.1 g/dL (12.0-16.0); LYMPHOCYTES # (AUTO) 0.6 K/uL (1.0-5.5); LYMPHOCYTES % (AUTO) 5.9 % (20.5-51.5); MEAN CORPUSCULAR HEMOGLOBIN 26 pg (27-31); MEAN CORPUSCULAR HGB CONC 32 % (32-36); MEAN CORPUSCULAR VOLUME 80 fL (79.0-98.0); MONOCYTES # (AUTO) 0.4 K/uL (0.0-1.0); MONOCYTES % (AUTO) 4.3 % (1.7-9.3); NEUTROPHILS # (AUTO) 8.5 K/uL (1.8-7.7); NEUTROPHILS % (AUTO) 85.2 % (40.0-70.0); PLATELET COUNT (AUTO) 233 K/uL (130-430); RED BLOOD CELL COUNT(AUTO) 5.06 MIL/uL (4.2-6.2); RED CELL DISTRIBUTION WIDTH 17.7 % (9.0-15.0); WHITE BLOOD COUNT (AUTO) 9.9 K/uL (4.8-10.8)
--- NOTE | 2023-03-11 09:00 | NUR ---
Patient has been seen by MD and IV given. Medications given, following labs and blood cultures. CXR, ABG's, breathing treatment and O2 placed as well.
[2023-03-11 09:06] LABS: ANION GAP 10 (5-15); CALCIUM 8.4 mg/dL (8.4-11.0); CHLORIDE 102 mmol/L (98-107); GFR AFRICAN AMERICAN 102 mL/min (>90); GLUCOSE 106 mg/dL (70-99); UREA NITROGEN, BLOOD 13 mg/dL (8-21)
[2023-03-11 09:13] LABS: ALANINE AMINOTRANSFERASE 20 U/L (12-78); ALBUMIN 3.2 g/dL (3.4-4.8); ASPARTATE AMINOTRANSFERASE 15 U/L (10-37); INR 1.1 (0.8-1.2); PROTHROMBIN TIME 11.4 SECS (9.5-12.5); TOTAL BILIRUBIN 1.1 mg/dL (0.0-1.0)
[2023-03-11 09:28] LABS: BILIRUBIN,URINE NEGATIVE (NEGATIVE); BLOOD, URINE NEGATIVE (NEGATIVE); COLOR,URINE YELLOW (YELLOW); GLUCOSE,URINE NEGATIVE (NEGATIVE); KETONES,URINE NEGATIVE (NEGATIVE); LEUKOCYTE ESTERASE ,URINE NEGATIVE (NEGATIVE); NITRITE, URINE NEGATIVE (NEGATIVE); PH,URINE 6.5 (5.0-8.0); PROTEIN URINE 1+ (NEGATIVE)
[2023-03-11 09:31] LABS: CLARITY/URINE SLIGHTLY HAZY (CLEAR)
[2023-03-11 09:34] LABS: BACTERIA,URINE RARE /HPF (None Seen); RBC,URINE NONE SEEN /HPF (0-3); WBC,URINE 0-3 /HPF (0-3)
[2023-03-11] MEDS ORDERED: AZITHROMYCIN 500 MG in NS 250 ML IV ONE (09:45)
[2023-03-11] MEDS ORDERED: cefTRIAXone 1 GM IVPB PREMIX 50 ML IV ONE (09:45)
--- NOTE | 2023-03-11 09:53 | NUR ---
Admit bed requested Patient will be admitted to care of Dr. JERRY. Admitted to TELEMETRY unit. Diagnosis COPD, PNEUMONIA, HYPERTENSION Inpatient (Yes or No) YES Observation (Yes or No) NO Orientation concerns or request close to nursing station (Yes or No) NO Covid Status PENDING On vent or bipap NO Isolation requirements PENDING Needs a sitter NO From Home (Yes or if No enter name of facility) YES Requires Dialysis (Yes or No) NO Med Rec Completed (Yes of No) PENDING
--- NOTE | 2023-03-11 10:00 | NUR ---
Patient to restroom and urine was obtained and sent to lab.
[2023-03-11] MEDS ORDERED: AZITHROMYCIN 500 MG/VIAL (ZITHROMAX) IV ONE (10:09)
--- NOTE | 2023-03-11 10:09 | NUR ---
COVID NASAL SWAB SAMPLE COLLECTED AT REQUEST OF HELENA
--- NOTE | 2023-03-11 11:39 | NUR ---
Patient currently sleeping; VS stabilizing and patient indicates she is feeling much better at this time. Earlier patient was feeling nauseous; salines given and this helped patient feel better as well.
[2023-03-11] MEDS ORDERED: LIP20 PO (11:47)
[2023-03-11] MEDS ORDERED: LISI20TA30 PO (11:47)
[2023-03-11] MEDS ORDERED: FURO-150 PO (11:47)
[2023-03-11] MEDS ORDERED: CARV6.2554 PO (11:47)
[2023-03-11] MEDS ORDERED: ALBUTEROL MDI INHALATION 8 GM INH INH SCH (12:00)
[2023-03-11] MEDS ORDERED: DIPHENOXYLATE HCL/ATROP SULF 2.5 MG TAB PO PRN (12:00)
--- NOTE | 2023-03-11 12:15 | NUR ---
Patient back up to restroom; returned to bed 4 and continue to run magnesium sulfate at lower rate as patient had med disconected and didn't tell this RN. Medicine is running again and patient is tolerating well.
[2023-03-11] MEDS ORDERED: CARVEDILOL 6.25 MG TABLET (COREG) PO ONE (12:30)
[2023-03-11] MEDS ORDERED: ALBUTEROL SULFATE 0.083% 2.5 MG/3 ML VIAL.NEB INH PRN (12:30)
--- NOTE | 2023-03-11 12:39 | NUR ---
Patient eating lunch at this time.
[2023-03-11] MEDS ORDERED: NALOXONE HCL 0.4 MG/ML AMP (NARCAN) IVP PRN ×2 (13:30)
[2023-03-11] MEDS ORDERED: ONDANSETRON HCL 4 MG/2 ML VIAL IVP PRN (13:30)
[2023-03-11] MEDS ORDERED: ACETAMINOPHEN 325 MG TABLET PO PRN ×2 (13:30→13:45)
[2023-03-11] MEDS ORDERED: HYDROcodone/ACETAMIN 5-325 MG TAB (NORCO/ VICODIN) PO PRN (13:30)
[2023-03-11] MEDS ORDERED: HYDROcodone/ACETAMIN 10-325 MG TAB PO PRN (13:30)
--- NOTE | 2023-03-11 14:40 | NUR ---
2nd covid nasal swab collected per request from rn. sample sent to lab
[2023-03-11] MEDS: NORMAL SALINE 5 ML DISP.SYRIN IVF SCH ×2 (14:50→21:37)
[2023-03-11] MEDS: ALBUTEROL SULFATE 0.083% 2.5 MG/3 ML VIAL.NEB INH SCH ×3 (14:52→23:55)
[2023-03-11] MEDS: IPRATROPIUM BROM 0.5 MG/2.5 ML VIAL.NEB (ATROVENT) INH SCH ×3 (14:53→23:55)
[2023-03-11] MEDS ORDERED: CARVEDILOL 6.25 MG TABLET (COREG) ONE (14:56)
--- NOTE | 2023-03-11 14:56 | NUR ---
Patient will be admitted to care of Dr. Hernandez. Admitted to Telemetry unit. Will go to room 106A. Belongings list completed. Complete and up to date summary report printed. SBAR report to be given at bedside with opportunity for questions.
--- NOTE | 2023-03-11 16:05 | NUR ---
ADMIT TO UNIT PATIENT ARRIVED TO UNIT FROM ER VIA GURNEY AT 1530. PATIENT IS AOX4. AMBULATORY WITH STEADY GAIT. NO SS OF DISTRESS NOTED. NO SOB NOTED. BREATHING IS EVEN AND NONLABORED, ON 2 LO 2 VIA NASAL CANNULA. VITAL SIGNS OBTAINED, DOCUMENTED. SPO2 AT 98%. PATIENT DENIES PAIN. PATIENT HAS BEEN ORIENTED TO ROOM AND USE OF CALL LIGHT. BELONGINGS HAVE BEEN DOCUMENTED AND ARE AT BEDSIDE. PATIENT HAD 22G TO L HAND; HOWEVER, IV FELL OUT WHEN ADJUSTING GOWN. SLAB LIFTING SUPERVISOR AT BEDSIDE AT THIS TIME. ALL SAFETY PRECAUTIONS IN PLACE AND CALL LIGHT WITHIN REACH.
--- NOTE | 2023-03-11 16:23 | NUR ---
CONSULTATION PAGED/CALLED Reason for Consultation: COPD, pneumonia, HTN Person Who was Notified: DR. London JERRY Consulting Physician: DR. London JERRY Intake Rn Specialty: CARDIO Ordering Physician: DR. Titus JERRY MD SAW PATIENT
--- NOTE | 2023-03-11 16:25 | NUR ---
CONSULTATION PAGED/CALLED Reason for Consultation: COPD, PNEUMONIA, HTN Person Who was Notified: DR. YBARRA VINYL WELDER AND FABRICATOR AND SAW PATIENT Consulting Physician: DR. TATE RUDOLPH VINYL WELDER AND FABRICATOR Back Wedger Specialty: PULMO Ordering Physician: ROSALINO
--- NOTE | 2023-03-11 16:27 | NUR ---
CONSULTATION PAGED/CALLED Reason for Consultation: COPD, PNEUMONIA, HTN Person Who was Notified: EXCHANGE SHUTTLE DRIVER Consulting Physician: DAMIAN. DR. MCMULLEN BUSINESS OBJECTS REPORT DEVELOPER Open Tenter Operator Specialty: ID Ordering Physician: ROSALINO
--- NOTE | 2023-03-11 19:22 | NUR ---
closing notes Patient is resting, awake. Patient requested pain medication. pain medication administered. no ss of distress noted. breathing is even and nonlabored, on 2 l o2 via NC. IV appears to be patent. No ss of infiltration noted. Patient is stable. All needs met. Bedside note given and continue of care endorsed to HELENA Black. All safety precautions in place and call light within reach.
--- NOTE | 2023-03-11 19:30 | NUR ---
OPENING NOTES Patient resting in bed no s/s pain or distress noted. Respirations even and unlabored - head of bed elevated. IV site patent no s/s redness infection or infiltration. Bed locked and in lowest position. Call light within reach.
[2023-03-11] MEDS: LORATADINE 10 MG TABLET PO SCH (20:09)
[2023-03-11] MEDS: CARVEDILOL 6.25 MG TABLET (COREG) PO SCH (20:09)
[2023-03-11] MEDS: ATORVASTATIN 20 MG TABLET PO SCH (20:09)
[2023-03-11] MEDS: METHYLPREDNISOLONE SOD SUCC 40 MG/ML VIAL IVP SCH (20:10)
[2023-03-12] VITALS (10 sets, daily range): BP systolic 141–160; PULSE 75–104; RESP 18–20; TEMP 97.2–97.9; O2SAT 90–98
[2023-03-12] MEDS: IPRATROPIUM BROM 0.5 MG/2.5 ML VIAL.NEB (ATROVENT) INH SCH ×6 (03:00→23:55)
[2023-03-12] MEDS: ALBUTEROL SULFATE 0.083% 2.5 MG/3 ML VIAL.NEB INH SCH ×6 (03:00→23:54)
[2023-03-12 05:09] LABS: BASOPHILS % (AUTO) 0.3 % (0.0-2.0); HEMATOCRIT 38.6 % (36-48); HEMOGLOBIN 12.3 g/dL (12.0-16.0); LYMPHOCYTES # (AUTO) 0.4 K/uL (1.0-5.5); LYMPHOCYTES % (AUTO) 3.6 % (20.5-51.5); MEAN CORPUSCULAR HEMOGLOBIN 26 pg (27-31); MEAN CORPUSCULAR HGB CONC 32 % (32-36); MEAN CORPUSCULAR VOLUME 81 fL (79.0-98.0); MONOCYTES # (AUTO) 0.3 K/uL (0.0-1.0); MONOCYTES % (AUTO) 2.8 % (1.7-9.3); NEUTROPHILS # (AUTO) 10.4 K/uL (1.8-7.7); NEUTROPHILS % (AUTO) 93.3 % (40.0-70.0); PLATELET COUNT (AUTO) 237 K/uL (130-430); RED BLOOD CELL COUNT(AUTO) 4.78 MIL/uL (4.2-6.2); RED CELL DISTRIBUTION WIDTH 17.5 % (9.0-15.0); WHITE BLOOD COUNT (AUTO) 11.2 K/uL (4.8-10.8)
[2023-03-12] MEDS: NORMAL SALINE 5 ML DISP.SYRIN IVF SCH ×3 (06:05→22:13)
[2023-03-12 06:15] LABS: ALBUMIN 3.2 g/dL (3.4-4.8); CALCIUM 8.3 mg/dL (8.4-11.0); CREATININE 0.77 mg/dL (0.55-1.30); TOTAL BILIRUBIN 0.7 mg/dL (0.0-1.0)
[2023-03-12] MEDS: LORATADINE 10 MG TABLET PO SCH ×2 (08:19→22:13)
[2023-03-12] MEDS: LISINOPRIL 10 MG TABLET (PRINIVIL) PO SCH (08:19)
[2023-03-12] MEDS: cefTRIAXone 1 GM IVPB PREMIX 50 ML IV SCH (08:19)
[2023-03-12] MEDS: METHYLPREDNISOLONE SOD SUCC 40 MG/ML VIAL IVP SCH ×2 (08:19→22:15)
[2023-03-12] MEDS: CARVEDILOL 6.25 MG TABLET (COREG) PO SCH ×2 (08:20→22:13)
[2023-03-12] MEDS ORDERED: FUROSEMIDE 20 MG TABLET PO SCH (09:00)
[2023-03-12] MEDS: AZITHROMYCIN 500 MG in NS 250 ML IV SCH (09:53)
--- NOTE | 2023-03-12 10:55 | NUR ---
IV LEAKING NOTED TO LEFT HAND, IV D/CD. NEW IV INSERTED IN RIGHT WRIST USING 22 GAUGE CATHETER WITH GOOD BLOOD RETURN NOTED.
[2023-03-12] MEDS ORDERED: FUROSEMIDE 20 MG/2 ML VIAL IVP ONE (13:15)
--- NOTE | 2023-03-12 19:35 | NUR ---
RECEIVED PT SITTING AT EDGE OF BED, NO DISTRESS NOTED, DENIES PAIN. AAOX4, O2 SAT 95% ON 2L VIA NC. LUNG SOUNDS DIMINISHED AND WITH DRY COUGH IV TO RT HAND SITE CDI. PT IS UPSET BECAUSE SHE HAS BEEN ASKING TO BE WASHED UP AND LINEN CHANGED. WILL BE ASSISTING PT WITH WASHING UP AND LINEN CHANGE.
[2023-03-12] MEDS: ATORVASTATIN 20 MG TABLET PO SCH (22:13)
[2023-03-12] MEDS: FUROSEMIDE 20 MG/2 ML VIAL IVP SCH (22:14)
[2023-03-13] VITALS (11 sets, daily range): BP systolic 139–166; PULSE 62–99; RESP 16–19; TEMP 96.9–97.7; O2SAT 91–99
[2023-03-13] MEDS: ALBUTEROL SULFATE 0.083% 2.5 MG/3 ML VIAL.NEB INH SCH ×6 (03:00→23:17)
[2023-03-13] MEDS: IPRATROPIUM BROM 0.5 MG/2.5 ML VIAL.NEB (ATROVENT) INH SCH ×6 (03:00→23:17)
[2023-03-13 05:19] LABS: BASOPHILS % (AUTO) 0.2 % (0.0-2.0); HEMATOCRIT 38.8 % (36-48); HEMOGLOBIN 12.5 g/dL (12.0-16.0); LYMPHOCYTES # (AUTO) 0.4 K/uL (1.0-5.5); LYMPHOCYTES % (AUTO) 4.6 % (20.5-51.5); MEAN CORPUSCULAR HEMOGLOBIN 26 pg (27-31); MEAN CORPUSCULAR HGB CONC 32 % (32-36); MEAN CORPUSCULAR VOLUME 81 fL (79.0-98.0); MONOCYTES # (AUTO) 0.3 K/uL (0.0-1.0); MONOCYTES % (AUTO) 2.8 % (1.7-9.3); NEUTROPHILS # (AUTO) 8.3 K/uL (1.8-7.7); NEUTROPHILS % (AUTO) 92.4 % (40.0-70.0); PLATELET COUNT (AUTO) 228 K/uL (130-430); RED BLOOD CELL COUNT(AUTO) 4.79 MIL/uL (4.2-6.2); RED CELL DISTRIBUTION WIDTH 17.8 % (9.0-15.0)
[2023-03-13 05:43] LABS: C-REACTIVE PROTEIN QUANT 3.7 mg/dL (0-0.5); CALCIUM 8.3 mg/dL (8.4-11.0); CREATININE 0.78 mg/dL (0.55-1.30)
[2023-03-13] MEDS: NORMAL SALINE 5 ML DISP.SYRIN IVF SCH ×3 (05:44→22:24)
[2023-03-13 07:36] LABS: ERYTHROCYTE SEDIMENTATION RATE 36 MM/HR (0-20)
--- NOTE | 2023-03-13 08:00 | NUR ---
Initial notes Alert. ambulate, On O2 2L, tolerating so far. Wants to go home. Denies any pain or discomfort. Afebrile. Call light within reach. Enc to call for help as needed.
[2023-03-13] MEDS: LORATADINE 10 MG TABLET PO SCH ×2 (08:59→20:19)
[2023-03-13] MEDS: CARVEDILOL 6.25 MG TABLET (COREG) PO SCH ×2 (08:59→20:20)
[2023-03-13] MEDS: LISINOPRIL 10 MG TABLET (PRINIVIL) PO SCH (09:00)
[2023-03-13] MEDS: METHYLPREDNISOLONE SOD SUCC 40 MG/ML VIAL IVP SCH ×2 (09:00→20:19)
[2023-03-13] MEDS: cefTRIAXone 1 GM IVPB PREMIX 50 ML IV SCH (09:01)
[2023-03-13] MEDS: FUROSEMIDE 20 MG/2 ML VIAL IVP SCH ×2 (09:01→20:19)
[2023-03-13 10:01] LABS: THYROID STIMULATING HORMONE 0.61 uIu/mL (0.34-4.82)
[2023-03-13] MEDS: AZITHROMYCIN 500 MG in NS 250 ML IV SCH (10:19)
--- NOTE | 2023-03-13 11:30 | NUR ---
Notes- Resting, No distress. Enc to call for help as needed.
--- NOTE | 2023-03-13 12:05 | NUR ---
FAXED ALLIED TO SET UP HOME [facility] AND ALSO SPOKE TO THE PATIENTS SON INFORMING HIM OF THE PLAN
--- NOTE | 2023-03-13 20:00 | NUR ---
ASSUMED CARE OF PATIENT AT THIS TIME. A/O X 4. BLOOD PRESSURE ELEVATED AT 166/89 WITH HEART RATE OF 99. WILL GIVE SCHEDULED BLOOD PRESSURE MEDICATION. PATIENT DENIES HEADACHE OR BLURRY VISION. HL INTACT AND PATENT. DENIES PAIN AT THIS TIME. NO ACUTE DISTRESS NOTED. WILL CONTINUE TO MONITOR FOR SAFETY. Irina REAVES RN.
[2023-03-13] MEDS: ATORVASTATIN 20 MG TABLET PO SCH (20:19)
--- NOTE | 2023-03-13 23:45 | NUR ---
PATIENT BLOOD PRESSURE ELEVATED AT 158/106 WITH A HEART RATE OF 84. PATIENT DENIES HEADACHE OR BLURRY VISION. DR. Shay JERRY CALLED AND NOTIFIED.ORDERS GIVEN AND CARRIED OUT. HELENA MERCADO.
[2023-03-13] MEDS: METOPROLOL TARTRATE 25 MG TABLET PO SCH (23:56)
[2023-03-14] VITALS (11 sets, daily range): BP systolic 148–158; PULSE 72–93; RESP 18–19; TEMP 96.9–97.3; O2SAT 93–97
--- NOTE | 2023-03-14 01:00 | NUR ---
BLOOD PRESSURE REDUCED TO 149/89 WITH HEART RATE OF 81. Irina REAVES RN.
[2023-03-14] MEDS: IPRATROPIUM BROM 0.5 MG/2.5 ML VIAL.NEB (ATROVENT) INH SCH ×3 (03:00→11:17)
[2023-03-14] MEDS: ALBUTEROL SULFATE 0.083% 2.5 MG/3 ML VIAL.NEB INH SCH ×3 (03:00→11:17)
[2023-03-14] MEDS: NORMAL SALINE 5 ML DISP.SYRIN IVF SCH ×2 (05:22→14:00)
--- NOTE | 2023-03-14 06:00 | NUR ---
REMAINS IN STABLE CONDITION. SLEPT WELL THROUGHOUT THE NIGHT WITH NO ACUTE DISTRESS NOTED. Irina REAVES RN.
--- NOTE | 2023-03-14 08:00 | NUR ---
Initial notes Alert, No distress, Ambulate to the bathroom. Enc to call for help as needed.
[2023-03-14] MEDS: METHYLPREDNISOLONE SOD SUCC 40 MG/ML VIAL IVP SCH (08:57)
[2023-03-14] MEDS: FUROSEMIDE 20 MG/2 ML VIAL IVP SCH (08:58)
[2023-03-14] MEDS: LORATADINE 10 MG TABLET PO SCH (08:59)
[2023-03-14] MEDS ORDERED: lisinopriL 20 MG TABLET PO SCH (09:00)
[2023-03-14] MEDS: CARVEDILOL 6.25 MG TABLET (COREG) PO SCH (09:00)
[2023-03-14] MEDS: METOPROLOL TARTRATE 25 MG TABLET PO SCH (09:00)
[2023-03-14] MEDS: cefTRIAXone 1 GM IVPB PREMIX 50 ML IV SCH (09:01)
[2023-03-14] MEDS ORDERED: LISI20TA30 PO (09:40)
[2023-03-14] MEDS ORDERED: ZIT250 PO (09:54)
[2023-03-14] MEDS ORDERED: PRED20TA PO (09:54)
--- NOTE | 2023-03-14 10:33 | NUR ---
Notes- O2 sat after walking to the bathroom is 91%, denies any shortness of breath.
[2023-03-14] MEDS: AZITHROMYCIN 500 MG in NS 250 ML IV SCH (10:59)
--- NOTE | 2023-03-14 12:42 | NUR ---
Notes- Eating lunch, Patient stated that her family will be able to pick her up this afternoon.
--- NOTE | 2023-03-14 14:40 | NUR ---
DISCHARGE INSTRUCTION GIVEN AND DISCUSSED WITH PATIENT. VERBALIZE UNDERSTANDING. EXCUSE FROM WORK ALSO GIVEN PER DR. JERRY. O2 SAT IN ROOM AIR IS 93%.
--- NOTE | 2023-03-14 16:08 | NUR ---
Family here and picker box operator patient. ambulatory. denies any pain or shortness of breath. IVL removed
[2023-03-14] MEDS ORDERED: CARVEDILOL 25 MG TABLET (COREG) PO SCH (21:00)
[2023-03-16 05:10] LABS: IMMUNOGLOBULIN E,TOTAL 107 IU/mL (6-495)
== END 2023-03-14 16:10 | disposition home or self-care (01) | DRG 139 ==
LOC: SED 07:56 → STU 09:53
PROVIDERS: ADMIT Preventive Medicine Preventive Medicine/Occupational Environmental Medicine; ATTEND Preventive Medicine Preventive Medicine/Occupational Environmental Medicine
DX: J12.9 Viral pneumonia, unspecified (principal); J96.01 Acute respiratory failure with hypoxia; I50.21 Acute systolic (congestive) heart failure; J44.0 Chronic obstructive pulmonary disease with (acute) lower respiratory infection; I11.0 Hypertensive heart disease with heart failure; J81.1 Chronic pulmonary edema; J44.1 Chronic obstructive pulmonary disease with (acute) exacerbation; Z68.41 Body mass index [BMI] 40.0-44.9, adult; I25.10 Atherosclerotic heart disease of native coronary artery without angina pectoris; E78.5 Hyperlipidemia, unspecified; Z20.822 Contact with and (suspected) exposure to COVID-19; I25.2 Old myocardial infarction; R00.0 Tachycardia, unspecified; E66.01 Morbid (severe) obesity due to excess calories; Z71.3 Dietary counseling and surveillance; Z72.0 Tobacco use; Z88.8 Allergy status to other drugs, medicaments and biological substances
CPT/HCPCS: 36415; 36600; 71045; 80048; 80053; 81000; 82785; 82803; 83735; 83880; 84100; 84443; 84484; 85025; 85379; 85610-TC; 85651-TC; 85730-TC; 86140; 86738; 87040; 87070-TC; 87205-TC; 87449; 93005; 93306; 94010; 94640; 94760; 96365; 96368; 96375; 99291; G0378; J0456; J0696; J1030; J1940; J2930; J3475; J7050; J7613

== ENCOUNTER 2023-09-02 21:48 | Emergency (ER) | payer MEDICAID ==
[~2023-09-02] VITALS: Ht 162.6 cm; Wt 113.4 kg
[~2023-09-02 21:48] MED LIST changes: -AZIT-93 PO; +CARV6.2554 PO; -COR6.25 PO; -LISI10TA29 PO; +LISI20TA30 PO; -LOM2.5 PO; -LORA10TA7 PO; -ONDA-8 TL; +ZIT250 PO
[2023-09-02 21:53] VITALS: BP_SYST 142; PULSE 88; RESP 22; TEMP 98.3; O2SAT 93
[2023-09-02] MEDS ORDERED: IPRATROPIUM/ALBUTEROL SULFATE 3 ML AMPUL.NEB (DUONEB) INH ONE (22:30)
[2023-09-02 22:43] LABS: BASOPHILS % (AUTO) 0.5 % (0.0-2.0); EOSINOPHILS # (AUTO) 0.4 K/uL (0.0-0.4); EOSINOPHILS % (AUTO) 4.8 % (0.0-4.0); HEMATOCRIT 40.7 % (36-48); HEMOGLOBIN 12.8 g/dL (12.0-16.0); LYMPHOCYTES # (AUTO) 0.4 K/uL (1.0-5.5); LYMPHOCYTES % (AUTO) 5.1 % (20.5-51.5); MEAN CORPUSCULAR HEMOGLOBIN 26 pg (27-31); MEAN CORPUSCULAR HGB CONC 32 % (32-36); MEAN CORPUSCULAR VOLUME 81 fL (79.0-98.0); MONOCYTES # (AUTO) 0.4 K/uL (0.0-1.0); MONOCYTES % (AUTO) 4.8 % (1.7-9.3); NEUTROPHILS # (AUTO) 6.4 K/uL (1.8-7.7); NEUTROPHILS % (AUTO) 84.8 % (40.0-70.0); PLATELET COUNT (AUTO) 225 K/uL (130-430); RED BLOOD CELL COUNT(AUTO) 5.02 MIL/uL (4.2-6.2); RED CELL DISTRIBUTION WIDTH 16.9 % (9.0-15.0); WHITE BLOOD COUNT (AUTO) 7.6 K/uL (4.8-10.8)
[2023-09-02 22:57] LABS: ALANINE AMINOTRANSFERASE 19 U/L (12-78); ALBUMIN 3.1 g/dL (3.4-4.8); ANION GAP 6 (5-15); ASPARTATE AMINOTRANSFERASE 13 U/L (10-37); CALCIUM 8.9 mg/dL (8.4-11.0); CARBON DIOXIDE 30 mmol/L (23-29); CHLORIDE 102 mmol/L (98-107); CREATININE 0.71 mg/dL (0.55-1.30); GFR AFRICAN AMERICAN 117 mL/min (>90); GFR NON AFRICAN-AMERICAN 96 mL/min (>90); GLUCOSE 145 mg/dL (74-106); POTASSIUM 3.4 mmol/L (3.5-5.1); SODIUM SERUM 138 mmol/L (136-145); TOTAL BILIRUBIN 0.4 mg/dL (0.0-1.0); TOTAL PROTEIN, SERUM 6.7 g/dL (6.4-8.3); UREA NITROGEN, BLOOD 14 mg/dL (8-21)
[2023-09-02] MEDS ORDERED: FUROSEMIDE 40 MG/4 ML VIAL IVP ONE (23:30)
[2023-09-02 23:47] LABS: INFLUENZA TYPE A NEGATIVE (NEGATIVE); INFLUENZA TYPE B NEGATIVE (NEGATIVE)
[2023-09-03] MEDS ORDERED: methylPREDNISolone SOD SUCC/PF 62.5 MG/ML VIAL IVP ONE
[2023-09-03 00:17] LABS: CLARITY/URINE CLEAR (CLEAR); COLOR,URINE Y (YELLOW); GLUCOSE,URINE NEGATIVE (NEGATIVE); KETONES,URINE NEGATIVE (NEGATIVE); PH,URINE 6.5 (5.0-8.0); PROTEIN URINE NEGATIVE (NEGATIVE)
[2023-09-03 00:18] LABS: BILIRUBIN,URINE NEGATIVE (NEGATIVE); BLOOD, URINE NEGATIVE (NEGATIVE); LEUKOCYTE ESTERASE ,URINE NEGATIVE (NEGATIVE); NITRITE, URINE NEGATIVE (NEGATIVE)
[2023-09-03] MEDS ORDERED: PRED20TA PO (00:26)
[2023-09-03] MEDS ORDERED: ALBMDI INH (00:26)
[2023-09-03 00:33] VITALS: BP_SYST 142; PULSE 93; RESP 18; O2SAT 96
== END 2023-09-03 00:33 | disposition home or self-care (01) ==
LOC: SED 21:48
DX: J96.01 Acute respiratory failure with hypoxia (principal); J44.1 Chronic obstructive pulmonary disease with (acute) exacerbation; I11.0 Hypertensive heart disease with heart failure; I50.9 Heart failure, unspecified; F17.200 Nicotine dependence, unspecified, uncomplicated; Z88.4 Allergy status to anesthetic agent; Z79.899 Other long term (current) drug therapy; Z20.822 Contact with and (suspected) exposure to COVID-19
CPT/HCPCS: 99291; 96374; 71045; 96375; 87426; 80053; 81001; 83880; 85025; 84484; 36415; 93005; 94640; 87804 ×2; 81003; J1940; J2930

== ENCOUNTER 2023-09-06 15:46 | Emergency (ER) | payer MEDICAID ==
[~2023-09-06] VITALS: Ht 160 cm; Wt 131.5 kg
[2023-09-06 16:04] VITALS: BP_SYST 189; PULSE 89; RESP 18; TEMP 98.3; O2SAT 94
[2023-09-06 17:06] LABS: INFLUENZA TYPE A Negative (NEGATIVE); INFLUENZA TYPE B NEGATIVE (NEGATIVE)
[2023-09-06] MEDS ORDERED: GUAI120L56 PO (17:14)
[2023-09-06] MEDS ORDERED: PRED20TA PO (17:14)
[2023-09-06 17:22] VITALS: BP_SYST 189; PULSE 89; RESP 18; TEMP 98.3; O2SAT 94
== END 2023-09-06 17:21 | disposition home or self-care (01) ==
LOC: SED 15:46
DX: J40 Bronchitis, not specified as acute or chronic (principal); B34.9 Viral infection, unspecified; J44.9 Chronic obstructive pulmonary disease, unspecified; I10 Essential (primary) hypertension; Z88.4 Allergy status to anesthetic agent; Z79.899 Other long term (current) drug therapy; Z20.822 Contact with and (suspected) exposure to COVID-19
CPT/HCPCS: 36415; 71045; 99284

== ENCOUNTER 2023-09-12 15:45 | Emergency (ER) | payer MEDICAID ==
[~2023-09-12] VITALS: Ht 162.6 cm; Wt 131.5 kg
[~2023-09-12 15:45] MED LIST changes: +GUAI120L56 PO
[2023-09-12 15:50] VITALS: BP_SYST 170; PULSE 99; RESP 22; TEMP 97.7; O2SAT 93
[2023-09-12 16:48] LABS: COVID19 ANTIGEN SOFIA FIA NEGATIVE (NEGATIVE); INFLUENZA TYPE A Negative (NEGATIVE); INFLUENZA TYPE B NEGATIVE (NEGATIVE)
== END 2023-09-12 16:49 | disposition left against medical advice (07) ==
LOC: SED 15:45
DX: R06.02 Shortness of breath (principal); Z20.822 Contact with and (suspected) exposure to COVID-19; Z53.21 Procedure and treatment not carried out due to patient leaving prior to being seen by health care provider
CPT/HCPCS: 36415; 99281

== ENCOUNTER 2024-04-07 03:11 | Emergency (ER) | payer MEDICAID ==
[~2024-04-07] VITALS: Ht 162.6 cm; Wt 117.9 kg
[2024-04-07 03:23] VITALS: BP_SYST 158; PULSE 108; RESP 30; TEMP 98.8; O2SAT 97
[2024-04-07] MEDS: IPRATROPIUM/ALBUTEROL SULFATE 3 ML AMPUL.NEB (DUONEB) INH ONE (03:34)
[2024-04-07] MEDS: methylPREDNISolone SOD SUCC/PF 62.5 MG/ML VIAL IVP ONE (03:41)
[2024-04-07] MEDS: cefTRIAXone 1 GM IVPB PREMIX 50 ML IV ONE (03:42)
[2024-04-07 03:53] LABS: BILIRUBIN,URINE NEGATIVE (NEGATIVE); BLOOD, URINE NEGATIVE (NEGATIVE); CLARITY/URINE CLEAR (CLEAR); COLOR,URINE YELLOW (YELLOW); GLUCOSE,URINE NEGATIVE (NEGATIVE); KETONES,URINE NEGATIVE (NEGATIVE); LEUKOCYTE ESTERASE ,URINE NEGATIVE (NEGATIVE); NITRITE, URINE NEGATIVE (NEGATIVE); PROTEIN URINE NEGATIVE (NEGATIVE); UROBILINOGEN,URINE 0.2 (0.2-1.0)
[2024-04-07 04:03] LABS: BASOPHILS # (AUTO) 0.1 K/uL (0.0-0.2); BASOPHILS % (AUTO) 0.9 % (0.0-2.0); EOSINOPHILS # (AUTO) 0.2 K/uL (0.0-0.4); EOSINOPHILS % (AUTO) 2.5 % (0.0-4.0); HEMATOCRIT 38.8 % (36-48); HEMOGLOBIN 12.8 g/dL (12.0-16.0); LYMPHOCYTES # (AUTO) 1.3 K/uL (1.0-5.5); MEAN CORPUSCULAR HEMOGLOBIN 27 pg (27-31); MEAN CORPUSCULAR HGB CONC 33 % (32-36); MEAN CORPUSCULAR VOLUME 80 fL (79.0-98.0); MONOCYTES # (AUTO) 0.4 K/uL (0.0-1.0); MONOCYTES % (AUTO) 3.8 % (1.7-9.3); NEUTROPHILS # (AUTO) 7.3 K/uL (1.8-7.7); NEUTROPHILS % (AUTO) 78.8 % (40.0-70.0); PLATELET COUNT (AUTO) 266 K/uL (130-430); RED BLOOD CELL COUNT(AUTO) 4.83 MIL/uL (4.2-6.2); RED CELL DISTRIBUTION WIDTH 16.8 % (9.0-15.0); WHITE BLOOD COUNT (AUTO) 9.3 K/uL (4.8-10.8)
[2024-04-07] MEDS ORDERED: AZITHROMYCIN 500 MG/VIAL (ZITHROMAX) IV ONE (04:04)
[2024-04-07] MEDS: AZITHROMYCIN 500 MG in NS 250 ML IV ONE (04:08)
[2024-04-07 04:12] LABS: ALBUMIN 3.3 g/dL (3.4-4.8); BILIRUBIN,DIRECT 0.3 mg/dL (0.0-0.3); CALCIUM 8.4 mg/dL (8.4-11.0); CREATININE 0.89 mg/dL (0.55-1.30); POTASSIUM 3.3 mmol/L (3.5-5.1); TOTAL BILIRUBIN 0.9 mg/dL (0.0-1.0); TOTAL PROTEIN, SERUM 7.4 g/dL (6.4-8.3)
[2024-04-07 04:13] LABS: BARBITURATE, URINE NEGATIVE (NEG <=200); BENZODIAZEPINE, URINE NEGATIVE (NEG <=150); CANNABINOID, URINE NEGATIVE (NEG <=50); COCAINE, URINE NEGATIVE (NEG <=150); METHAMPHETAMINES SCREEN,URINE NEGATIVE (NEG <=500); OPIATE, URINE NEGATIVE (NEG <=100); PHENCYCLIDINE SCREEN,URINE NEGATIVE (NEG <=25); UR TRICYCLIC ANTIDEPRESSANTS NEGATIVE (NEG <=300); URINE AMPHETAMINE NEGATIVE (NEG <=500); URINE METHADONE NEGATIVE (NEG <=200); URINE OXYCODONE SCREEN NEGATIVE (NEG <=100)
[2024-04-07] MEDS: MAGNESIUM SULFATE 50 ML IV ONE (05:21)
[2024-04-07] MEDS ORDERED: ATOR20TA64 PO (06:35)
[2024-04-07] MEDS ORDERED: FURO20TA4 PO (06:35)
[2024-04-07] MEDS: ONDANSETRON HCL 4 MG/2 ML VIAL IVP ONE (06:39)
[2024-04-07] MEDS: FUROSEMIDE 20 MG/2 ML VIAL IVP ONE (06:41)
[2024-04-07 07:08] VITALS: BP_SYST 147; PULSE 94; RESP 23; TEMP 98.4; O2SAT 95
[2024-04-07] MEDS ORDERED: METHYLPREDNISOLONE SOD SUCC 40 MG/ML VIAL IVP SCH (09:00)
[2024-04-07] MEDS ORDERED: AZITHROMYCIN 500 MG in NS 250 ML IV SCH (21:00)
== END 2024-04-07 07:21 | disposition left against medical advice (07) ==
LOC: SED 03:11
DX: R06.02 Shortness of breath (principal); J18.9 Pneumonia, unspecified organism; J44.1 Chronic obstructive pulmonary disease with (acute) exacerbation; I11.0 Hypertensive heart disease with heart failure; I50.9 Heart failure, unspecified; Z88.5 Allergy status to narcotic agent; Z79.899 Other long term (current) drug therapy; Z79.2 Long term (current) use of antibiotics
CPT/HCPCS: 99285; 96365; 96375; 71045; 96367; 96366; 80307; 80076; 80048; 81001; 85025; 87040; 36415; 94640; 96368; 81025; J0456; J0696; J2405; 81003; J1940; J2930; J3475